=== PATIENT | female | born 1980 | race Caucasian/White ===

== ENCOUNTER 2017-10-13 14:36 | Outpatient (CLI) | payer OTHER ==
[2017-10-13 18:56] LABS: BASOPHILS % (AUTO) 0.9 %; EOSINOPHILS % (AUTO) 0.7 %; HGB - HEMOGLOBIN 13.7 g/dL (12.0-16.0); LYMPHOCYTES # (AUTO) 2.1 10^3/uL (1.5-3.5); LYMPHOCYTES % (AUTO) 37.6 %; MEAN CORPUSCULAR HEMOGLOBIN 33.3 pg (27.0-31.0); MEAN CORPUSCULAR HGB CONC 33.7 g/dL (32.0-36.0); MEAN CORPUSCULAR VOLUME 98.9 fL (81.0-99.0); MEAN PLATELET VOLUME 8.7 fL (7.9-10.8); MONOCYTES # (AUTO) 0.4 10^3/uL (0.0-1.0); MONOCYTES % (AUTO) 7.2 %; NEUTROPHILS % (AUTO) 53.6 %; PLT - PLATELET COUNT 202 10^3/uL (130-450); RED BLOOD COUNT 4.11 10^6/uL (4.20-5.40); RED CELL DISTRIBUTION WIDTH 12.9 % (12.0-15.0); WHITE BLOOD COUNT 5.6 x10^3/uL (4.8-10.8)
[2017-10-13 19:14] LABS: ALBUMIN 4.4 g/dL (3.2-5.5); ALBUMIN/GLOBULIN RATIO 1.3 (1.0-2.2); BILIRUBIN,TOTAL 1.4 mg/dL (0.2-1.0); CALCIUM 9.3 mg/dL (8.5-10.3); CREATININE 0.6 mg/dL (0.4-1.0); TOTAL PROTEIN 7.7 g/dL (6.7-8.2)
[2017-10-15 18:16] LABS: ANA SCREEN POSITIVE (NEGATIVE)
== END 2017-10-13 14:37 | disposition home or self-care (01) ==
LOC: LAB.WCP 14:36
PROVIDERS: ATTEND Physician Assistant
DX: R53.83 Other fatigue (principal); R21 Rash and other nonspecific skin eruption
CPT/HCPCS: 36415; 80053; 84443; 85025; 86038

== ENCOUNTER 2017-10-26 15:14 | Outpatient (CLI) | payer OTHER ==
[2017-10-26 18:48] LABS: RHEUMATOID FACTOR NEGATIVE (Negative)
[2017-10-28 18:10] LABS: CYCLIC CITRULL PEPTIDE CCP IGG <16 UNITS
[2017-10-28 18:51] LABS: DNA (DS) ANTIBODY <1 IU/mL
== END 2017-10-26 15:15 | disposition home or self-care (01) ==
LOC: LAB.WCP 15:14
PROVIDERS: ATTEND Physician Assistant
DX: R79.89 Other specified abnormal findings of blood chemistry (principal); R53.83 Other fatigue; R53.81 Other malaise
CPT/HCPCS: 36415; 83516; 85651; 86140; 86200; 86225; 86430

== ENCOUNTER 2020-02-28 12:17 | Emergency (ER) | payer OTHER ==
--- NOTE | 2020-02-28 12:56 | ED Physician Documentation ---
History of Present Illness - Stated complaint Stated Complaint: RT ANKLE INJ - Chief complaint Chief Complaint: Ext Problem - Additonal information Additional information: 39-year-old female presents to the emergency department for evaluation of acute right ankle pain. Reports being at her karate class last night and landing on the right foot and rolling it. This was an inversion injury. No history of previous injury to this ankle. She has a lot of swelling and pain above the lateral malleolus. She is able to bear weight but in the morning that it was exquisitely painful until she warmed to the ankle up. Review of Systems Constitutional: reports: Reviewed and negative Eyes: reports: Reviewed and negative Nose: reports: Reviewed and negative Throat: reports: Reviewed and negative Cardiac: reports: Reviewed and negative Respiratory: reports: Reviewed and negative GI: reports: Reviewed and negative : reports: Reviewed and negative Skin: reports: Reviewed and negative Musculoskeletal: reports: Joint pain (right ankle) PD PAST MEDICAL HISTORY - Past Surgical History Past Surgical History: No - Allergies Allergies/Adverse Reactions: Allergies Allergy/AdvReac Type Severity Reaction Status Date / Time No Known Drug Allergies Allergy Verified 02/28/20 12:30 - Social History Does the pt smoke?: No Smoking Status: Never smoker Does the pt drink ETOH?: Yes ETOH Use: Wine, Beer Does the pt have substance abuse?: No - Immunizations Immunizations are current?: Yes - POLST Patient has POLST: No PD ED PE EXPANDED - Extremities Extremities: Right foot (Swelling and tenderness of the right lateral ankle. Tenderness above the lateral malleolus. no deformity noted. 2+ DP pulse) Results - Vitals Vitals: Vital Signs - 24 hr 02/28/20 12:21 Temperature 36.4 C L Heart Rate 61 Respiratory 16 Rate Blood Pressure 131/81 H O2 Saturation 99 Oxygen O2 Source Room air - Rads (name of study) right ankle Radiology: Final report received (No acute fracture or dislocation.) PD MEDICAL DECISION MAKING - ED course Complexity details: reviewed results, re-evaluated patient, considered differential, d/w patient ED course: 39-year-old female presents to the emergency department for acute right ankle pain after an inversion injury last night while in karate. She has some tenderness above the lateral malleolus but no obvious dislocation. Mild swelling is noted of the joint. X-ray does not show acute fracture or dislocation. At this time it appears that she has sustained a moderate to severe sprain. Patient was placed in an Aircast and given crutches and advised nonweightbearing for the next 5 to 7 days. If pain inability to bear weight not markedly better at that time she should consider repeat imaging. Departure - Departure Disposition: 01 Home, Self Care Clinical Impression: Ankle sprain Qualifiers: Encounter type: initial encounter Involved ligament of ankle: unspecified ligament Laterality: right Qualified Code(s): S93.401A - Sprain of unspecified ligament of right ankle, initial encounter Condition: Stable Record reviewed to determine appropriate education?: Yes Instructions: ED Sprain Ankle Follow-Up: Helen Albright ARNP, [employer] [Primary Care Provider] - Within 1 week Comments: Scarlett the pain in your ankle is most likely moderate to severe sprain. The x- ray does not show any obvious fracture or dislocation. I would like you to air wear the air splint when out of bed for the next 7 days. I would also like you to be nonweightbearing and use crutches to get around. If your pain and ability to bear weight is not markedly better in 7 to 10 days if the x-ray should be repeated. This can be done at any urgent care, emergency department or through your primary care provider. I do recommend that you take 600 mg of ibuprofen 3 times a day with food for the next 5 to 7 days. This will help the most with pain and inflammation. I also recommend that you ice the foot for 10 minutes 2-3 times a day.
--- NOTE | 2020-02-28 13:33 | XRAY Report ---
PROCEDURE: Ankle 3 View RT INDICATIONS: inversion injury TECHNIQUE: 3 views of the ankle were acquired. COMPARISON: None FINDINGS: Bones: No fractures or dislocations. Ankle mortise is normally aligned. No suspicious bony lesions . Soft tissues: No tibiotalar joint effusion. Achilles tendon appears normal. IMPRESSION: No visualized acute fracture or dislocation. However, occult injury cannot be excluded. Recommend short interval imaging follow-up in 7-10 days as clinically indicated for additional evalua tion. Reviewed by: Kristyn Dey MD on 02/28/2020 1:32 PM RUST Approved by: Kristyn Dey MD on 02/28/2020 1:32 PM RUST Station ID: [id number]
[2020-02-28 13:48] VITALS: BP 121/74
== END 2020-02-28 13:50 | disposition home or self-care (01) ==
LOC: ED 12:17
DX: S93.401A Sprain of unspecified ligament of right ankle, initial encounter (principal); X50.1XXA Overexertion from prolonged static or awkward postures, initial encounter; Y93.59 Activity, other involving other sports and athletics played individually
CPT/HCPCS: 99281; 99283

== ENCOUNTER 2020-11-20 11:23 | Emergency (ER) | payer OTHER ==
[2020-11-20] MEDS ORDERED: RABIES IMMUNE GLOBULIN 300 UNITS/2 ML IM STA (11:48)
[2020-11-20] MEDS ORDERED: RABIES VACCINE 2.5 UNIT SYRINGE IM ONE (11:48)
--- NOTE | 2020-11-20 11:57 | ED Physician Documentation ---
History of Present Illness - Stated complaint Stated Complaint: BAT EXPOSURE - Chief complaint Chief Complaint: General - Additonal information Additional information: 40-year-old female presents with her 2 children for evaluation of Bat exposure. They had been sleeping in their family cabin in the [facility] when they noticed a bat flying around in the cabin. They open the doors and windows in an attempt to get the bat out but never actually saw the bat league. The next morning the mom noticed that the roof above the beds were the gross sleep had daylight and sunlight leaking through so she is also concerned that that may be flying around in the house at night while asleep. No pertinent past medical history. Immunizations otherwise up-to-date. Has never received rabies vaccine or immunoglobulin. Review of Systems Constitutional: reports: Reviewed and negative Eyes: reports: Reviewed and negative Nose: reports: Reviewed and negative Cardiac: reports: Reviewed and negative Respiratory: reports: Reviewed and negative GI: reports: Reviewed and negative : reports: Reviewed and negative Skin: reports: Reviewed and negative Musculoskeletal: reports: Reviewed and negative PD PAST MEDICAL HISTORY - Past Surgical History Past Surgical History: No - Allergies Allergies/Adverse Reactions: Allergies Allergy/AdvReac Type Severity Reaction Status Date / Time No Known Drug Allergies Allergy Verified 11/20/20 11:35 - Social History Does the pt smoke?: No Smoking Status: Never smoker Does the pt drink ETOH?: Yes Does the pt have substance abuse?: No - Immunizations Immunizations are current?: Yes - POLST Patient has POLST: No PD ED PE NORMAL - General General: Alert and oriented X 3, No acute distress - HEENT HEENT: PERRL - Neck Neck: Supple, no meningeal sign - Cardiac Cardiac: RRR, No murmur - Respiratory Respiratory: Clear bilaterally - Abdomen Abdomen: Normal bowel sounds, Soft, Non tender, Non distended - Back Back: No CVA TTP, No spinal TTP - Derm Derm: Normal color, Warm and dry, No rash - Extremities Extremities: No deformity - Neuro Neuro: Alert and oriented X 3, information assurance manager 2-12 intact Eye Opening: Spontaneous Motor: Obeys Commands Verbal: Oriented GCS Score: 15 Results - Vitals Vitals: Vital Signs - 24 hr 11/20/20 11:30 Temperature 37.2 C Heart Rate 68 Respiratory 18 Rate Blood Pressure 145/89 H O2 Saturation 100 Oxygen O2 Source Room air PD MEDICAL DECISION MAKING - ED course Complexity details: reviewed results, re-evaluated patient, d/w patient ED course: 40-year-old female presents emergency department for bat exposure with a family cabin in [place]. The bat was never seen to leave the cabin and they noticed daylight sticking through the smith near the roof and they are concerned about maybe entering the cabin and flying around at night. Patient and her children do meet the exposure guidelines for both immunoglobulin as well as rabies vaccine. First dose of vaccine was administered here as well as immunoglobulin. The schedule and timing for subsequent vaccine doses was discussed at length. Emergent return precautions discussed Departure - Departure Disposition: 01 Home, Self Care Clinical Impression: Rabies exposure Condition: Stable Record reviewed to determine appropriate education?: Yes Comments: Your family was seen in the emergency department today for exposure to a bat and you did meet the guidelines to receive both the immunoglobulin and the vaccine. Your first dose of vaccine was administered today. The next 3 doses are due on November 20, November 23, November 27 and December 04 respectively. You can expect to have mild fevers chills headaches or nausea which is common with any vaccine administration. Rest fluids and [id number] ibuprofen and Tylenol is typically sufficient.
[2020-11-20 13:16] VITALS: BP 106/73
== END 2020-11-20 13:21 | disposition home or self-care (01) ==
LOC: ED 11:23
DX: Z20.3 Contact with and (suspected) exposure to rabies (principal); Z29.14 Encounter for prophylactic rabies immune globulin
CPT/HCPCS: 90471; 96372; 99282; 99283

== ENCOUNTER 2020-11-23 08:25 | Emergency (ER) | payer OTHER ==
[2020-11-23] MEDS ORDERED: RABIES VACCINE 2.5 UNIT SYRINGE IM ONE (08:30)
--- NOTE | 2020-11-23 08:40 | ED Physician Documentation ---
History of Present Illness - Stated complaint Stated Complaint: FOLLOW UP RABIES - History obtained from History obtained from: Patient - History of Present Illness Timing: Today Pain level max: 0 Pain level now: 0 - Additonal information Additional information: Patient was potentially exposed to a bat in a cabin in [place]. Here for her second rabies vaccination. No complaints after first vaccination. Asymptomatic. Review of Systems Constitutional: denies: Fever, Chills GI: denies: Vomiting Musculoskeletal: denies: Neck pain, Back pain PD PAST MEDICAL HISTORY - Past Medical History Past Medical History: No - Past Surgical History Past Surgical History: No - Present Medications Home Medications: Ambulatory Orders Medication Instructions Recorded Confirmed No Known Home Medications 11/20/20 11/20/20 - Allergies Allergies/Adverse Reactions: Allergies Allergy/AdvReac Type Severity Reaction Status Date / Time No Known Drug Allergies Allergy Verified 11/20/20 11:35 - Living Situation Living Situation: reports: With family Living Arrangement: reports: At home - Social History Does the pt smoke?: No Smoking Status: Never smoker Does the pt drink ETOH?: Yes Does the pt have substance abuse?: No - Immunizations Immunizations are current?: Yes - POLST Patient has POLST: No PD ED PE NORMAL - Vitals Vital signs reviewed: Yes - General General: Alert and oriented X 3 - HEENT HEENT: Moist mucous membranes - Respiratory Respiratory: No respiratory distress - Derm Derm: Warm and dry - Neuro Neuro: Alert and oriented X 3 - Psych Psych: Normal mood, Normal affect Results - Vitals Vitals: Vital Signs - 24 hr 11/23/20 08:30 Temperature 36.4 C L Heart Rate 71 Respiratory 16 Rate Blood Pressure 127/82 H O2 Saturation 100 Oxygen O2 Source Room air PD MEDICAL DECISION MAKING - ED course Complexity details: considered differential, d/w patient ED course: Second vaccination given. Patient will still need vaccinations on day 7 and day 14. We will try to arrange this through the [facility] by having the patient's primary care provider fax over an order. This document was made in part using voice recognition software. While efforts are made to proofread this document, sound alike and grammatical errors may occur. Departure - Departure Disposition: 01 Home, Self Care Clinical Impression: Rabies exposure Condition: Good Instructions: Rabies Vaccine suspension for injection Follow-Up: [facility] [Provider Group] Comments: You can have your primary care provider fax over an order for the next 2 rabies vaccinations to the [facility]. The fax number is [phone]. They will arra nge the vaccination for you. You need 2 more vaccinations on day 7 and day 14.
[2020-11-23 08:47] VITALS: BP 127/82
== END 2020-11-23 09:34 | disposition home or self-care (01) ==
LOC: ED 08:25
DX: Z29.14 Encounter for prophylactic rabies immune globulin (principal); Z20.3 Contact with and (suspected) exposure to rabies
CPT/HCPCS: 90471

== ENCOUNTER 2020-11-27 21:30 | Emergency (ER) | payer OTHER ==
[2020-11-27] MEDS ORDERED: RABIES VACCINE 2.5 UNIT SYRINGE IM ONE ×2 (21:56→22:04)
--- NOTE | 2020-11-27 22:47 | ED Physician Documentation ---
PD HPI SKIN - Stated complaint Stated Complaint: RABIES EXPOSURE - Chief complaint Chief Complaint: Wound - History obtained from History obtained from: Patient - Additional information Additional information: Patient returns to ED for another rabies vaccine installment after a possible bat exposure couple of weeks ago. She denies symptoms. Review of Systems Ten Systems: 10 systems reviewed and negative Constitutional: reports: Reviewed and negative Eyes: reports: Reviewed and negative Ears: reports: Reviewed and negative Nose: reports: Reviewed and negative Throat: reports: Reviewed and negative Cardiac: reports: Reviewed and negative Respiratory: reports: Reviewed and negative GI: reports: Reviewed and negative : reports: Reviewed and negative Skin: reports: Reviewed and negative Musculoskeletal: reports: Reviewed and negative Neurologic: reports: Reviewed and negative Psychiatric: reports: Reviewed and negative Endocrine: reports: Reviewed and negative Immunocompromised: reports: Reviewed and negative PD PAST MEDICAL HISTORY - Past Surgical History Past Surgical History: No - Present Medications Home Medications: Ambulatory Orders Medication Instructions Recorded Confirmed No Known Home Medications 11/20/20 11/20/20 - Allergies Allergies/Adverse Reactions: Allergies Allergy/AdvReac Type Severity Reaction Status Date / Time No Known Drug Allergies Allergy Verified 11/27/20 21:39 - Social History Does the pt smoke?: No Smoking Status: Never smoker Does the pt drink ETOH?: Yes Does the pt have substance abuse?: No - Immunizations Immunizations are current?: Yes - POLST Patient has POLST: No PD ED PE NORMAL - Vitals Vital signs reviewed: Yes - General General: Alert and oriented X 3, No acute distress, Well developed/nourished - HEENT HEENT: Atraumatic, PERRL, EOMI, Moist mucous membranes - Neck Neck: Supple, no meningeal sign - Respiratory Respiratory: No respiratory distress - Derm Derm: Warm and dry - Extremities Extremities: No deformity - Neuro Neuro: Alert and oriented X 3 - Psych Psych: Normal mood, Normal affect Results - Vitals Vitals: Vital Signs - 24 hr 11/27/20 11/27/20 21:39 23:14 Temperature 36.5 C Heart Rate 68 58 L Respiratory 16 17 Rate Blood Pressure 138/76 H 130/91 H O2 Saturation 100 100 Oxygen O2 Source Room air PD MEDICAL DECISION MAKING - ED course Complexity details: considered differential, d/w patient ED course: Patient given the rabies vaccine. She has been counseled that her next dose will be due on December 04. Departure - Departure Disposition: 01 Home, Self Care Clinical Impression: Rabies exposure Condition: Stable Comments: Please return on December 04 for 1 last dose of the rabies vaccine. Discharge Date/Time: 11/27/20 23:14
[2020-11-27 23:15] VITALS: BP 130/91
== END 2020-11-27 23:14 | disposition home or self-care (01) ==
LOC: ED 21:30
DX: Z29.14 Encounter for prophylactic rabies immune globulin (principal); Z20.3 Contact with and (suspected) exposure to rabies
CPT/HCPCS: 90471

== ENCOUNTER 2021-01-24 08:11 | Outpatient (CLI) | payer OTHER ==
[2021-01-24 08:44] LABS: BASOPHILS % (AUTO) 0.2 %; EOSINOPHILS % (AUTO) 0.3 %; HCT - HEMATOCRIT 39.8 % (37.0-47.0); HGB - HEMOGLOBIN 13.3 g/dL (12.0-16.0); LYMPHOCYTES # (AUTO) 1.8 10^3/uL (1.5-3.5); LYMPHOCYTES % (AUTO) 19.8 %; MEAN CORPUSCULAR HEMOGLOBIN 33.2 pg (27.0-31.0); MEAN CORPUSCULAR HGB CONC 33.4 g/dL (32.0-36.0); MEAN CORPUSCULAR VOLUME 99.3 fL (81.0-99.0); MEAN PLATELET VOLUME 9.3 fL (7.9-10.8); MONOCYTES # (AUTO) 0.5 10^3/uL (0.0-1.0); MONOCYTES % (AUTO) 6.1 %; NEUTROPHILS # (AUTO) 6.5 10^3/uL (1.5-6.6); NEUTROPHILS % (AUTO) 73.1 %; PLT - PLATELET COUNT 209 10^3/uL (130-450); RED BLOOD COUNT 4.01 10^6/uL (4.20-5.40); RED CELL DISTRIBUTION WIDTH 12.1 % (12.0-15.0); WHITE BLOOD COUNT 8.9 x10^3/uL (4.8-10.8)
== END 2021-01-24 08:12 | disposition home or self-care (01) ==
LOC: LAB 08:11
PROVIDERS: ATTEND Family Medicine
DX: Z32.01 Encounter for pregnancy test, result positive (principal)
CPT/HCPCS: 36415; 84702; 85025

== ENCOUNTER 2022-02-21 08:00 | Outpatient (CLI) | payer OTHER ==
[2022-02-21 22:48] LABS: BACTERIAL VAGINOSIS DNA NEGATIVE (NEGATIVE); CANDIDA GLABRATA DNA NEGATIVE (NEGATIVE); CANDIDA GROUP DNA NEGATIVE (NEGATIVE); CANDIDA KRUSEI DNA NEGATIVE (NEGATIVE); TRICHOMONAS VAGINALIS DNA NEGATIVE (NEGATIVE)
== END 2022-02-21 23:59 | disposition home or self-care (01) ==
LOC: LAB.WC 08:00
PROVIDERS: ATTEND Nurse Practitioner
DX: N89.8 Other specified noninflammatory disorders of vagina (principal)
CPT/HCPCS: 81514

== ENCOUNTER 2023-07-12 08:53 | Outpatient (CLI) | payer OTHER ==
[2023-07-12 10:22] LABS: BASOPHILS % (AUTO) 0.6 %; EOSINOPHILS # (AUTO) 0.1 10^3/uL (0.0-0.7); EOSINOPHILS % (AUTO) 1.3 %; HCT - HEMATOCRIT 40.4 % (37.0-47.0); HGB - HEMOGLOBIN 13.2 g/dL (12.0-16.0); LYMPHOCYTES % (AUTO) 20.9 %; MEAN CORPUSCULAR HEMOGLOBIN 32.1 pg (27.0-31.0); MEAN CORPUSCULAR HGB CONC 32.7 g/dL (32.0-36.0); MEAN CORPUSCULAR VOLUME 98.3 fL (81.0-99.0); MEAN PLATELET VOLUME 10.2 fL (7.9-10.8); MONOCYTES # (AUTO) 0.5 10^3/uL (0.0-1.0); MONOCYTES % (AUTO) 10.1 %; NEUTROPHILS # (AUTO) 3.1 10^3/uL (1.5-6.6); NEUTROPHILS % (AUTO) 66.9 %; PLT - PLATELET COUNT 198 10^3/uL (130-450); RED BLOOD COUNT 4.11 10^6/uL (4.20-5.40); RED CELL DISTRIBUTION WIDTH 12.9 % (12.0-15.0); WHITE BLOOD COUNT 4.6 x10^3/uL (4.8-10.8)
[2023-07-12 10:40] LABS: ALBUMIN 4.4 g/dL (3.2-5.5); ALBUMIN/GLOBULIN RATIO 1.8 (1.0-2.2); ALKALINE PHOSPHATASE 40 IU/L (42-121); ALT ALANINE AMINOTRANSFERASE 22 IU/L (10-60); AST ASPARTATE AMINOTRANSFERASE 15 IU/L (10-42); BILIRUBIN,TOTAL 2.1 mg/dL (0.2-1.0); BUN - BLOOD UREA NITROGEN 9 mg/dL (6-20); CALCIUM 9.4 mg/dL (8.5-10.3); CARBON DIOXIDE - CO2 29 mmol/L (21-32); CHLORIDE 104 mmol/L (101-111); CHOLESTEROL 137 mg/dL; CREATININE 0.7 mg/dL (0.6-1.3); GFR - MDRD 91 (>89); GLUCOSE 96 mg/dL (74-104); HDL CHOLESTEROL 67 mg/dL; LDL CHOLESTEROL,CALCULATED 55 mg/dL; LDL/HDL RATIO 0.8 (<4.4); POTASSIUM 3.7 mmol/L (3.5-4.5); SODIUM 138 mmol/L (135-145); TOTAL PROTEIN 6.9 g/dL (6.4-8.9); TRIGLYCERIDES 75 mg/dL (48-352); VLDL CHOLESTEROL 15 mg/dL
[2023-07-12 10:46] LABS: THYROID STIMULATING HORMONE 1.04 uIU/mL (0.34-5.60)
--- NOTE | 2023-07-12 12:35 | Ultrasound Report ---
PROCEDURE: Pelvic w/Transvaginal INDICATIONS: UMBILICAL HERNIA,INGUINAL HERNIA,PELVIC PAIN TECHNIQUE: Real-time scanning was performed of the pelvic organs, with image documentation. Additional endovagi nal scanning was necessary due to incomplete visualization of the adnexal and endometrial structures by transabdominal scanning. COMPARISON: None. FINDINGS: Uterus: Uterus is anteverted and normal in size at 10.3 x 4.2 x 5.7 cm. The myometrium is heterogen eous. The endometrium measures 1.2 mm in combined thickness. Trace fluid is noted in the endocervica l canal. Ovaries: The right ovary measures 3.9 x 2.6 x 2.6 cm, with a calculated ovarian volume of 13.9 cc. The left ovary measures 2.7 x 2.0 x 2.0 cm, with a calculated ovarian volume of 6.0 cc. The ovaries have a normal sonographic appearance. Less than 12 follicles can be seen in each ovary. No adnexal masses are seen. No cystic lesions measuring greater than 3 cm. Other: No pathologic free abdominal or pelvic fluid. Moderately tortuous ectatic vessels are noted a t the uterine fundus. IMPRESSION: 1. Mild tortuosity of the gonadal veins which can be associated with pelvic congestion. 2. Otherwise unremarkable pelvic ultrasound. Reviewed by: Patricia Koehler MD on 07/12/2023 12:33 PM PDT Approved by: Patricia Koehler MD on 07/12/2023 12:33 PM PDT Station ID: [id number]
--- NOTE | 2023-07-12 12:36 | Ultrasound Report ---
PROCEDURE: Abdomen Limited INDICATIONS: UMBILICAL HERNIA,INGUINAL HERNIA,PELVIC PAIN TECHNIQUE: Real-time focused scanning was performed of the abdomen, with image documentation. COMPARISONS: None. FINDINGS: No sonographic findings to suggest umbilical hernia in the region indicated by the patient. IMPRESSION: No sonographic evidence for umbilical hernia. Reviewed by: Patricia Koehler MD on 07/12/2023 12:34 PM PDT Approved by: Patricia Koehler MD on 07/12/2023 12:34 PM PDT Station ID: [id number]
--- NOTE | 2023-07-12 12:37 | Ultrasound Report ---
PROCEDURE: Pelvic Limited INDICATIONS: UMBILICAL HERNIA,INGUINAL HERNIA,PELVIC PAIN TECHNIQUE: Real-time transabdominal scanning was performed of the pelvic organs, with image documentation. COMPARISON: None. FINDINGS: There is a 1.0 x 0.5 x 1.1 cm anechoic cystic lesion within the subcutaneous fat in the area palpated by the patient near the right pubic bone. This demonstrates posterior acoustic enhancement. No inter nal vascularity. Other: No free pelvic fluid. IMPRESSION: Small cystic lesion within the subcutaneous fat near the right pubic bone. If further characterizatio n is warranted, CT of this region could be used. The significance of this finding is unclear. [place] l cyst could be considered in the differential if this is adjacent to the symphysis pubis. Reviewed by: Patricia Koehler MD on 07/12/2023 12:36 PM PDT Approved by: Patricia Koehler MD on 07/12/2023 12:36 PM PDT Station ID: [id number]
== END 2023-07-12 08:54 | disposition home or self-care (01) ==
LOC: DI 08:53
PROVIDERS: ATTEND Nurse Practitioner
DX: K40.90 Unilateral inguinal hernia, without obstruction or gangrene, not specified as recurrent (principal); K42.9 Umbilical hernia without obstruction or gangrene; I86.8 Varicose veins of other specified sites; R93.89 Abnormal findings on diagnostic imaging of other specified body structures; Z00.00 Encounter for general adult medical examination without abnormal findings; R79.89 Other specified abnormal findings of blood chemistry; Z13.220 Encounter for screening for lipoid disorders; F41.9 Anxiety disorder, unspecified; G43.009 Migraine without aura, not intractable, without status migrainosus; Z91.89 Other specified personal risk factors, not elsewhere classified
CPT/HCPCS: 36415; 80053; 80061; 83721; 84443; 85025

== ENCOUNTER 2023-07-17 14:31 | Outpatient (CLI) | payer OTHER ==
--- NOTE | 2023-07-20 09:06 | Mammography Report ---
BILATERAL FIRST EVER DIGITAL SCREENING MAMMOGRAM 3D/2D WITH EXAGGERATED CC: 07/17/2023 CLINICAL: Baseline exam. Routine screening. No prior exams were available for comparison. Both breasts are heterogeneously dense, which may obscure small masses (category c / 51-75% glandular tissue). No significant masses, calcifications, or other findings are seen in either breast. IMPRESSION: NEGATIVE There is no mammographic evidence of malignancy. A 1 year screening mammogram is recommended. Based on the Tyrer Cuzick model (a risk assessment model) the patient's lifetime risk is 14.1% and he r 10 year risk is 2.3%. According to the ACR, ACS, and NCCN guidelines, an annual breast MRI exam denise ng with mammogram is recommended if the patient's lifetime risk is 20% or greater. This exam was interpreted at Station ID: [id number]. NOTE: For mammograms, a report in lay terms will be sent to the patient. Approximately 15% of breast malignancies will not be visualized mammographically. In the management of a palpable breast mass, a negative mammogram must not discourage biopsy of a clinically suspicious lesion. Electronically Signed By: Charmaine [email or web address]:07/17/2023 16:55:06 ACR BI-RADS Category 1: Negative 3341F PARENCHYMAL PATTERN: (D) - The breast(s) demonstrate(s) heterogeneously dense fibroglandular paringey elba. BI-RADS CATEGORY: (1) - 1 RECOMMENDATION: (ANNUAL) - Recommend routine annual screening mammography. [id number] 1 year screening LATERALITY: (B)
== END 2023-07-17 14:32 | disposition home or self-care (01) ==
LOC: DI 14:31
PROVIDERS: ATTEND Nurse Practitioner
DX: Z12.31 Encounter for screening mammogram for malignant neoplasm of breast (principal); R92.333 Mammographic heterogeneous density, bilateral breasts

== ENCOUNTER 2023-07-28 15:49 | Outpatient (CLI) | payer OTHER ==
[2023-07-28] MEDS ORDERED: iohexoL-300 100 ML VIAL ONE (15:54)
[2023-07-28] MEDS: iohexoL-300 100 ML VIAL IVP ONE (17:09)
--- NOTE | 2023-07-29 17:05 | CT Report ---
PROCEDURE: Pelvis W INDICATIONS: CYST CONTRAST: Omnipaque 300 100ml TECHNIQUE: After the administration of intravenous contrast, a CT scan of the pelvis was performed. Images were recorded and evaluated at appropriate window settings. Reformats: axial MIP of the chest, coronal an d sagittal. For radiation dose reduction, the following was used: automated exposure control, adjustm ent of mA and/or kV according to patient size. COMPARISON: Pelvic ultrasound dated July 12, 2023 FINDINGS: Image quality: Adequate. Patient coughed mid scan; therefore, an immediate second scan was performed. Bowel and peritoneum: No bowel distension. No pathologic free fluid. Above average colonic stool jevon en. Vessels: No infrarenal aortic aneurysm. Reproductive organs: Unremarkable. Bladder: No abnormal wall thickening, accounting for underdistention. Pelvic lymph nodes: No pelvic adenopathy by size criteria. Bones: No aggressive osseous abnormality. No acute fracture. No CT evidence of a synovial cyst or mas s. Other: No significant ventral or inguinal hernia. Tiny amount of fluid versus a cyst in the right ing uinal region immediately superolateral to the right pubic bone measuring 0.7 x 0.6 cm. A few superfic ial venous collaterals in the lower anterior pelvic region. IMPRESSION: 1. No suspicious findings in the right inguinal or pubic region. Tiny amount of fluid versus a cyst i n the right inguinal region immediately superolateral to the right pubic bone which may correspond wi th the ultrasound findings. No CT evidence of a synovial cyst or mass. -Recommend close interval ultrasound follow-up of the area of discomfort to evaluate for interval rina nge. 2. Above-average colonic stool burden suggestive of constipation. Reviewed by: Nory Davis MD on 07/29/2023 5:03 PM PDT Approved by: Nory Davis MD on 07/29/2023 5:03 PM PDT Station ID: [id number]
== END 2023-07-28 15:50 | disposition home or self-care (01) ==
LOC: DI 15:49
PROVIDERS: ATTEND Nurse Practitioner
DX: L72.9 Follicular cyst of the skin and subcutaneous tissue, unspecified (principal)
CPT/HCPCS: 72193; Q9967